=== PATIENT | male | born 1975 | race Caucasian/White ===

== ENCOUNTER 2017-07-16 14:09 | Emergency (ER) | payer OTHER ==
[~2017-07-16] VITALS: Ht 175.3 cm; Wt 71.8 kg
[2017-07-16 14:30] VITALS: BP 120/91; PULSE 72; RESP 18; TEMP 98.8; O2SAT 100
--- NOTE | 2017-07-16 15:10 | RADRPT ---
EXAM DATE/TIME: 07/16/2017 14:54 [place] COMPARISON: No previous studies available for comparison. INDICATIONS : Hit on head with ceiling fan,dizzy RADIATION DOSE: 38.38 CTDIvol (mGy) MEDICAL HISTORY : None SURGICAL HISTORY : None. ENCOUNTER: Initial ACUITY: 1 day PAIN SCALE: 6/10 LOCATION: cranial TECHNIQUE: Multiple contiguous axial images were obtained of the head. Using automated exposure control and adj ustment of the mA and/or kV according to patient size, radiation dose was kept as low as reasonably a chievable to obtain optimal diagnostic quality images. DICOM format image data is available electro nically for review and comparison. FINDINGS: CEREBRUM: The ventricles are normal for age. No evidence of midline shift, mass lesion, hemorrhage or acute in farction. No extra-axial fluid collections are seen. POSTERIOR FOSSA: The cerebellum and brainstem are intact. The 4th ventricle is midline. The cerebellopontine angle i s unremarkable. EXTRACRANIAL: The visualized portion of the orbits is intact. SKULL: The calvaria is intact. No evidence of skull fracture. CONCLUSION: Normal examination. Simone Bernardo MD on July 16, 2017 at 15:08 Board Certified Radiologist. This report was verified electronically.
--- NOTE | 2017-07-16 15:48 | PD ---
HPI Chief Complaint: Head Injury Time Seen by Provider: 15:15 Travel History International Travel<30 days: No Contact w/Intl Traveler<30days: No Traveled to known affect area: No History of Present Illness HPI 41-year-old male here with laceration to the scalp after his head was struck by the blade of a ceiling fan. No loss of consciousness. Patient is not anticoagulated. He reports feeling an episode of dizziness after the injury. The dizziness has since resolved. He is here for laceration repair. He denies headache, visual changes, paresthesia or weakness of the extremities. Symptom severity is mild. No aggravating or alleviating factors. [facility] Social History Tobacco Use: No Allergies-Medications (Allergen,Severity, Reaction): Coded Allergies: No Known Allergies (Unverified , 07/16/17) Review of Systems Except as stated in HPI: all other systems reviewed are Neg Physical Exam Narrative GENERAL: Alert and well-appearing 41-year-old male SKIN: Warm and dry. Small 0.5 cm lac to the frontal scalp. HEAD: Normocephalic. EYES: Pupils equal and round. EOMs intact. No injection or drainage. ENT: No nasal bleeding or discharge. Mucous membranes pink and moist. NECK: Trachea midline. No midline spine tenderness. CARDIOVASCULAR: Regular rate and rhythm. RESPIRATORY: No accessory muscle use. Clear to auscultation. Breath sounds equal bilaterally. MUSCULOSKELETAL: Extremities without clubbing, cyanosis, or edema. No obvious deformities. NEUROLOGICAL: Awake and alert. No obvious cranial nerve deficits. Motor grossly within normal limits. Five out of 5 muscle strength in the arms and legs. Normal speech. PSYCHIATRIC: Appropriate mood and affect; insight and judgment normal. Data Data Last Documented VS Vital Signs Date Time Temp Pulse Resp B/P (MAP) Pulse Ox O2 Delivery O2 Flow Rate FiO2 07/16/17 14:30 98.8 72 18 120/91 (101) [address] Brain W/O Iv Contrast(Rout) (07/16/17 ) [facility] Medical Decision Making Medical Screen Exam Complete: Yes Emergency Medical Condition: Yes Differential Diagnosis Scalp laceration, scalp hematoma, skull fracture, ICH Narrative Course 41-year-old male here with small laceration to the scalp. He is well- appearing. He has a normal neurologic exam. CT scan is negative for intracranial hemorrhage. Laceration repair performed. Patient tolerated procedure well. Procedures Procedure Narrative LACERATION LOCATION: Scalp LENGTH: 0.5 CM NUMBER OF STITCHES/HO: 1 REPAIR: The area of the laceration was prepped with Betadine and sterilely draped. The wound was copiously irrigated and explored without evidence of foreign body, tendon injury or neurovascular injury. The wound was closed using staple. This was a SINGLE layer repair. A sterile dressing was applied. The patient was advised to keep the dressing clean and dry. Patient tolerated the procedure well. Diagnosis Primary Impression: Scalp laceration Qualified Codes: S01.01XA - Laceration without foreign body of scalp, initial encounter Additional Impression: Minor head injury without loss of consciousness Qualified Codes: S09.90XA - Unspecified injury of head, initial encounter Referrals: Primary Care Physician Departure Forms: Tests/Procedures, Work Release Special Instructions: No heavy lifting or strenuous activity for one week Additional Instructions: No heavy lifting or strenuous activity for one week. Tylenol as needed for pain. Staple needs to be removed in 7-10 days. Return if he developed new or worsening symptoms. Disposition: 01 DISCHARGE HOME Condition: Stable Luz Latham Jul 16, 2017 15:48
== END 2017-07-16 16:27 | disposition home or self-care (01) ==
LOC: NEPK 14:09
DX: S01.01XA Laceration without foreign body of scalp, initial encounter (principal); W22.8XXA Striking against or struck by other objects, initial encounter
CPT/HCPCS: 12001; 70450

== ENCOUNTER 2017-07-28 12:15 | Emergency (ER) | payer OTHER ==
[~2017-07-28] VITALS: Ht 175.3 cm; Wt 70.0 kg
[2017-07-28 12:30] VITALS: BP 116/56; PULSE 75; RESP 17; TEMP 99.1; O2SAT 99
== END 2017-07-28 14:26 | disposition left against medical advice (07) ==
LOC: NETRI 12:15
DX: Z53.21 Procedure and treatment not carried out due to patient leaving prior to being seen by health care provider (principal)
CPT/HCPCS: 99281